=== PATIENT | female | born 1995 | race Two or more races ===

== ENCOUNTER 2016-09-22 20:03 | Emergency (ER) | payer BC ==
[~2016-09-22] VITALS: Ht 157.5 cm; Wt 63.5 kg
--- NOTE | 2016-09-22 20:52 | PHYS DOC ---
General Chief Complaint: TOE PROBLEM Stated Complaint: TOE INJURY Time Seen by MD: 20:05 Source: patient Exam Limitations: no limitations Problems: History of Present Illness Initial Comments Patient is a 20-year-old female who comes in the ED complaining of right hallux nail avulsion. Patient states that she had artery lost her right hallux nail due to trauma recently. She use a fake toenail with glue to attach a fake nail to her exposed nail bed prior to going to the [place]. 2 days ago while at the [place] she accidentally kicked a rock which dislodged the fake nail. She now has an exposed tender red right hallux nail bed. No purulence there's been serosanguineous discharge. She denies pain and swelling is minimal she denies any other injury and her tetanus status is not up-to-date. No fever chills sweats or myalgias no pre-arrival treatment she denies any immunosuppression. She has history of simple skin MRSA infection in the past. Onset: other Severity: moderate Pain/Injury Location: right 1st toe Method of Injury: direct blow Modifying Factors: worse with jarring, worse with movement, improves with rest Allergies: Coded Allergies: No Known Drug Allergies (Unverified , 09/22/16) Past Medical History Medical History: no pertinent history Surgical History: no surgical history Social History Smoker: non-smoker Alcohol: none Drugs: none Review of Systems Constitutional: denies chills, denies diaphoresis, denies fever, denies malaise Respiratory: denies cough, denies shortness of breath Cardiovascular: denies chest pain, denies palpitations Gastrointestinal: denies diarrhea, denies nausea, denies vomiting Genitourinary: denies dysuria, denies frequency, denies hematuria Musculoskeletal: see HPI Skin: see HPI Physical Exam General Appearance: WD/WN, no apparent distress HEENT: normal ENT inspection Neck: non-tender, supple Cardiovascular/Respiratory: normal peripheral pulses, no respiratory distress Back: no CVA tenderness, no vertebral tenderness Ankles: bilateral ankle non-tender, bilateral ankle normal inspection, bilateral ankle normal range of motion, bilateral ankle no evidence of injury Feet: left foot non-tender, left foot normal inspection, left foot normal range of motion, left foot no evidence of injury, right foot other (the nail is missing her right hallux stairs pink healing tissue no active bleeding or lacerations. Very minimal soft tissue swelling no bony tenderness the extremity appears to be neurovascularly intact ligaments are intact.) Neurologic/Tendon: normal sensation, normal motor functions, normal tendon functions, responds to pain, no evidence tendon injury Psychiatric: alert, oriented x 3 Skin: warm/dry (right hallux as above) Departure Time of Disposition: 20:50 Disposition: 01 HOME, SELF-CARE Diagnosis: R Hallux nail avulsion/cellulitis Condition: GOOD Patient Instructions: Cellulitis, [id number], Nail Avulsion Injury Additional Instructions: Elevate right foot as tolerated. Warm Epsom salt soaks twice daily. [id number] Tylenol and ibuprofen as needed. Keep wound covered with sterile dressing until healed. Wash wound twice daily with soap and warm water, blot dry. Apply Bactroban ointment and change dressing with each wash. Allow the wound to air dry one hour daily. Prescription: Bactrim DS, Bactroban ointment Follow-up with your doctor in 5-7 days for a recheck. Return to the ED with new or changing symptoms SHARAD CARPIO DO Sep 22, 2016 20:52
[2016-09-22 21:00] VITALS: BP 116/58
[2016-09-22] MEDS ORDERED: DIPHTH,PERTUSS(ACELL),TET TOX 0.5 ML DISP.SYRIN. VAX IM ONE (21:15)
[2016-09-22] MEDS ORDERED: cefTRIAXone IM 1 GM VIAL IM ONE (21:15)
== END 2016-09-22 21:15 | disposition home or self-care (01) ==
LOC: ER 20:03
DX: S91.201A Unspecified open wound of right great toe with damage to nail, initial encounter (principal); W22.8XXA Striking against or struck by other objects, initial encounter; Y93.89 Activity, other specified; Y99.8 Other external cause status; Y92.89 Other specified places as the place of occurrence of the external cause
CPT/HCPCS: 99283

== ENCOUNTER 2016-11-15 11:51 | Emergency (ER) | payer BC ==
[2016-11-15 11:55] VITALS: BP 117/64
[2016-11-15] MEDS ORDERED: ONDANSETRON ODT 4 MG TAB.RAPDIS ONE (12:12)
[2016-11-15] MEDS ORDERED: MORPHINE SULFATE 10 MG/ML SYRINGE. ONE (12:12)
[2016-11-15] MEDS ORDERED: ONDANSETRON ODT 4 MG TAB.RAPDIS PO ONE (12:40)
[2016-11-15] MEDS ORDERED: MORPHINE SULFATE 10 MG/ML SYRINGE. IV ONE (12:40)
[2016-11-15] MEDS ORDERED: MORPHINE SULFATE 10 MG/ML SYRINGE. IM ONE (12:45)
--- NOTE | 2016-11-15 14:41 | ED.ADGEN ---
Past History Past Medical History: MRSA Past Surgical History: Tonsillectomy Alcohol Use: Occasionally Drug Use: None Adult General Chief Complaint Chief Complaint Abscess to buttocks HPI HPI Patient is a 21-year-old female with history of MRSA who presents with abscesses to left and right buttocks one week. Patient's been seen twice and put on different antibiotics to treat abscess which continue to enlarge and become more painful. On exam, there is minimal purulent drainage from right buttocks abscess with firm indurated abscess approximately 2 x 3 cm with pointing. On the left buttocks areas of small 1 by mouth centimeter abscess with minimal induration and erythema and no fluctuance. Patient is not fever chills, nausea vomiting sweats. She denies other symptoms or complaints. Review of Systems Review of Systems ROS as per HPI. All other ROS are negative. Current Medications Current Medications Current Medications Medications (Trade) Dose Ordered Sig/Yosvany Start Time Stop Time Status Last Admin Dose Admin Morphine Sulfate (Morphine 10mg Syringe) 5 mg 1X ONCE 11/15/16 12:45 11/15/16 12:46 DC Ondansetron HCl (Zofran Odt) 4 mg STK-MED ONCE 11/15/16 12:12 11/15/16 12:13 DC Allergies Allergies Allergies Coded Allergies Type Severity Reaction Last Updated Verified No Known Drug Allergies 09/22/16 No Physical Exam Physical Exam Constitutional: Well developed, well nourished, no acute distress, non-toxic appearance. [] HENT: Normocephalic, atraumatic, bilateral external ears normal, oropharynx moist, no oral exudates, nose normal. [] Eyes: PERRLA, EOM. Cardiovascular:Heart rate regular rhythm, no murmur [] Lungs & Thorax: Bilateral breath sounds clear to auscultation [] Skin: There is minimal purulent drainage from right buttocks abscess with firm indurated abscess approximately 2 x 3 cm with pointing. On the left buttocks areas of small 1 by mouth centimeter abscess with minimal induration and erythema and no fluctuance. Neurologic: Alert and oriented X 3, normal motor function, normal sensory function, no focal deficits noted. Psychologic: Affect normal, judgement normal, mood normal. [] Current Patient Data Vital Signs Vital Signs Date Time Temp Pulse Resp B/P (MAP) Pulse Ox O2 Delivery O2 Flow Rate FiO2 8/5/17 11:55 98.3 85 16 99 EKG EKG [] Radiology/Procedures Radiology/Procedures [Proceduce Note: Patient had 2 abscesses located on each buttocks prepped with Betadine. Each abscess was then injected with 1% lidocaine without epinephrine. A stab incision was made to the left buttocks with purulent drainage obtained. The wound was then irrigated and explored for loculations. A bandage was placed over the incision site. A stab incision was made to the right buttocks with minimal purulent material being expressed. Wound was irrigated and on for loculations which were not present. A bandage was then placed over the insertion night. The patient tolerated the procedure well. ] Course & Med Decision Making Course & Med Decision Making Pertinent Labs and Imaging studies reviewed. (See chart for details) [I&D of thorax abscesses with culture obtained. Recommendation continued supportive care, antibiotics with PCP follow-up.] Final Impression Final Impression [1. abscesses of right and left buttocks] Problems: Dragon Disclaimer Dragon Disclaimer This electronic medical record was generated, in whole or in part, using a voice recognition dictation system. KATHERINE RUIZ DO Nov 15, 2016 14:41
== END 2016-11-15 13:18 | disposition home or self-care (01) ==
LOC: ER 11:51
DX: L02.31 Cutaneous abscess of buttock (principal); Z86.14 Personal history of Methicillin resistant Staphylococcus aureus infection
CPT/HCPCS: 10060; 87070; 87186; 99284; Q0162; 99283

== ENCOUNTER 2017-02-04 01:35 | Emergency (ER) | payer BC ==
--- NOTE | 2017-02-04 01:38 | ED.ADGEN ---
Past History Past Medical History: Anxiety, MRSA, Other Additional Past Medical Histor: EATING Disorder Past Surgical History: Tonsillectomy Smoking: Cigarettes Alcohol Use: Occasionally Drug Use: None Adult General Chief Complaint Chief Complaint " I am about 6 weeks .. I am not feeling well all day.. lower pelvic tenderness. I don't know if this is the way your I am supposed to feel in ..." " I am tired all the time".. HPI HPI Patient is a 21 year old female who presents with above hx and complaints of lower pelvic pain. Patient states had a previous ultrasound in outpatient clinic in [place], [place]. The clinic advised her she was approximately 6 weeks . Patient has no history of STDs. Reports 3 lifetime sex partners. This is patient's first . No history of trauma. No history of travel. No history of change in bowel movements or any dysuria.. No specific ill contacts. Patient has not been taking vitamins. Patient does have a history eating disorder which she eats and then forces herself to vomit.. Pt. does smoke tobacco and Marijuana. Pt. has drank alcohol recently.. Pt. follows with Dr. Wallis. Review of Systems Review of Systems Constitutional: Denies fever or chills [] Eyes: Denies change in visual acuity, redness, or eye pain [] HENT: Denies nasal congestion or sore throat [] Respiratory: Denies cough or shortness of breath [] Cardiovascular: No additional information not addressed in HPI [] GI: Complaints of pelvic abdominal pain, nausea,. Denies vomiting, bloody stools or diarrhea [] : Denies dysuria or hematuria [] Musculoskeletal: Denies back pain or joint pain [] Integument: Denies rash or skin lesions [] Neurologic: Denies headache, focal weakness or sensory changes [] Endocrine: Denies polyuria or polydipsia [] Family History Family History Noncontributory Current Medications Current Medications Current Medications Medications (Trade) Dose Ordered Sig/Yosvany Start Time Stop Time Status Last Admin Dose Admin Famotidine (Pepcid) 20 mg 1X ONCE 02/04/17 02:00 02/04/17 03:39 DC 02/04/17 03:09 20 MG Lactated Ringer's 1,000 ml @ 1,000 mls/hr Q1H 02/04/17 02:00 02/04/17 03:38 DC 02/04/17 03:09 1,000 MLS/HR Allergies Allergies Allergies Coded Allergies Type Severity Reaction Last Updated Verified No Known Drug Allergies 09/22/16 No Physical Exam Physical Exam Constitutional: Well developed, well nourished, [id number] distress, non- toxic appearance. [] HENT: Normocephalic, atraumatic, bilateral external ears normal, oropharynx moist, no oral exudates, nose normal. [] Eyes: PERRLA, EOMI, conjunctiva normal, no discharge. [] Neck: Normal range of motion, no tenderness, supple, no stridor. [] Cardiovascular:Heart rate regular rhythm, no murmur [] Lungs & Thorax: Bilateral breath sounds clear to auscultation [] Abdomen: Bowel sounds present all 4 quadrants, soft, lower pelvic tenderness, no masses, no pulsatile masses. Pelvic exam shows no active bleeding by OS. Mild cervical motion tenderness. Rectal hard stool. Skin: Warm, dry, no erythema, no rash. [] Back: No tenderness, no CVA tenderness. [] Extremities: No tenderness, no cyanosis, no clubbing, ROM intact, no edema. [] Neurologic: Alert and oriented X 3, normal motor function, normal sensory function, no focal deficits noted. [] Psychologic: Affect anxious, judgement normal, mood normal. [] Current Patient Data Vital Signs Vital Signs Date Time Temp Pulse Resp B/P (MAP) Pulse Ox O2 Delivery O2 Flow Rate FiO2 02/04/17 04:10 98.0 94 20 122/81 (95) 99 Room Air Lab Results Laboratory Tests Test 02/04/17 02:10 02/04/17 02:30 White Blood Count 12.3 x10^3/uL (4.0-11.0) H Red Blood Count 4.95 x10^6/uL (3.50-5.40) Hemoglobin 14.7 g/dL (12.0-15.5) Hematocrit 43.4 % (36.0-47.0) Mean Corpuscular Volume 88 fL (79-100) Mean Corpuscular Hemoglobin 30 pg (25-35) Mean Corpuscular Hemoglobin Concent 34 g/dL (31-37) Red Cell Distribution Width 14.8 % (11.5-14.5) H Platelet Count 257 x10^3/uL (140-400) Neutrophils (%) (Auto) 70 % (31-73) Lymphocytes (%) (Auto) 22 % (24-48) L Monocytes (%) (Auto) 7 % (0-9) Eosinophils (%) (Auto) 1 % (0-3) Basophils (%) (Auto) 1 % (0-3) Neutrophils # (Auto) 8.7 x10^3uL (1.8-7.7) H Lymphocytes # (Auto) 2.7 x10^3/uL (1.0-4.8) Monocytes # (Auto) 0.9 x10^3/uL (0.0-1.1) Eosinophils # (Auto) 0.1 x10^3/uL (0.0-0.7) Basophils # (Auto) 0.1 x10^3/uL (0.0-0.2) Prothrombin Time 9.8 SEC (9.4-11.4) Prothrombin Time INR 1.0 (0.9-1.1) PTT 27 SEC (23-33) Maternal Serum HCG Beta Subunit 41996 mIU/mL (0-6) H Sodium Level 137 mmol/L (136-145) Potassium Level 3.9 mmol/L (3.5-5.1) Chloride Level 101 mmol/L (98-107) Carbon Dioxide Level 28 mmol/L (21-32) Anion Gap 8 (6-14) Blood Urea Nitrogen 10 mg/dL (7-20) Creatinine 0.5 mg/dL (0.6-1.0) L Estimated GFR (Cockcroft-Gault) 155.7 BUN/Creatinine Ratio 20 (6-20) Glucose Level 83 mg/dL (70-99) Calcium Level 8.7 mg/dL (8.5-10.1) Total Bilirubin 0.2 mg/dL (0.2-1.0) Direct Bilirubin 0.1 mg/dL (0.0-0.2) Aspartate Amino Transferase (AST) 15 U/L (15-37) Alanine Aminotransferase (ALT) 22 U/L (14-59) Alkaline Phosphatase 40 U/L (46-116) L Total Protein 6.6 g/dL (6.4-8.2) Albumin 3.6 g/dL (3.4-5.0) Albumin/Globulin Ratio 1.2 (1.0-1.7) Amylase Level 55 U/L (25-115) Lipase 276 U/L (73-393) Urine Collection Type Unknown Urine Color Yellow Urine Clarity Clear Urine pH 7.0 Urine Specific [place] 1.015 Urine Protein Neg (NEG-TRACE) Urine Glucose (UA) Neg mg/dL (NEG) Urine Ketones (Stick) Neg mg/dL (NEG) Urine Blood Trace (NEG) Urine Nitrite Neg (NEG) Urine Bilirubin Neg (NEG) Urine Urobilinogen Dipstick 0.2 mg/dL (0.2 mg/dL) Urine Leukocyte Esterase Neg (NEG) Urine RBC Rare /HPF (0-2) Urine WBC Occ /HPF (0-4) Urine Squamous Epithelial Cells Occ /LPF Urine Bacteria 0 /HPF (0-FEW) Urine Opiates Screen Neg (NEG) Urine Methadone Screen Neg (NEG) Urine Barbiturates Neg (NEG) Urine Phencyclidine Screen Neg (NEG) Urine Amphetamine/Methamphetamine Neg (NEG) Urine Benzodiazepines Screen Neg (NEG) Urine Cocaine Screen Neg (NEG) Urine Cannabinoids Screen Pos (NEG) Urine Ethyl Alcohol Neg (NEG) Microbiology 02/04/17 Wet Prep - Final, Complete Laboratory Tests Test 02/04/17 02:10 02/04/17 02:30 White Blood Count 12.3 x10^3/uL (4.0-11.0) H Red Blood Count 4.95 x10^6/uL (3.50-5.40) Hemoglobin 14.7 g/dL (12.0-15.5) Hematocrit 43.4 % (36.0-47.0) Mean Corpuscular Volume 88 fL (79-100) Mean Corpuscular Hemoglobin 30 pg (25-35) Mean Corpuscular Hemoglobin Concent 34 g/dL (31-37) Red Cell Distribution Width 14.8 % (11.5-14.5) H Platelet Count 257 x10^3/uL (140-400) Neutrophils (%) (Auto) 70 % (31-73) Lymphocytes (%) (Auto) 22 % (24-48) L Monocytes (%) (Auto) 7 % (0-9) Eosinophils (%) (Auto) 1 % (0-3) Basophils (%) (Auto) 1 % (0-3) Neutrophils # (Auto) 8.7 x10^3uL (1.8-7.7) H Lymphocytes # (Auto) 2.7 x10^3/uL (1.0-4.8) Monocytes # (Auto) 0.9 x10^3/uL (0.0-1.1) Eosinophils # (Auto) 0.1 x10^3/uL (0.0-0.7) Basophils # (Auto) 0.1 x10^3/uL (0.0-0.2) Prothrombin Time 9.8 SEC (9.4-11.4) Prothrombin Time INR 1.0 (0.9-1.1) PTT 27 SEC (23-33) Maternal Serum HCG Beta Subunit 90384 mIU/mL (0-6) H Sodium Level 137 mmol/L (136-145) Potassium Level 3.9 mmol/L (3.5-5.1) Chloride Level 101 mmol/L (98-107) Carbon Dioxide Level 28 mmol/L (21-32) Anion Gap 8 (6-14) Blood Urea Nitrogen 10 mg/dL (7-20) Creatinine 0.5 mg/dL (0.6-1.0) L Estimated GFR (Cockcroft-Gault) 155.7 BUN/Creatinine Ratio 20 (6-20) Glucose Level 83 mg/dL (70-99) Calcium Level 8.7 mg/dL (8.5-10.1) Total Bilirubin 0.2 mg/dL (0.2-1.0) Direct Bilirubin 0.1 mg/dL (0.0-0.2) Aspartate Amino Transferase (AST) 15 U/L (15-37) Alanine Aminotransferase (ALT) 22 U/L (14-59) Alkaline Phosphatase 40 U/L (46-116) L Total Protein 6.6 g/dL (6.4-8.2) Albumin 3.6 g/dL (3.4-5.0) Albumin/Globulin Ratio 1.2 (1.0-1.7) Amylase Level 55 U/L (25-115) Lipase 276 U/L (73-393) Urine Collection Type Unknown Urine Color Yellow Urine Clarity Clear Urine pH 7.0 Urine Specific [place] 1.015 Urine Protein Neg (NEG-TRACE) Urine Glucose (UA) Neg mg/dL (NEG) Urine Ketones (Stick) Neg mg/dL (NEG) Urine Blood Trace (NEG) Urine Nitrite Neg (NEG) Urine Bilirubin Neg (NEG) Urine Urobilinogen Dipstick 0.2 mg/dL (0.2 mg/dL) Urine Leukocyte Esterase Neg (NEG) Urine RBC Rare /HPF (0-2) Urine WBC Occ /HPF (0-4) Urine Squamous Epithelial Cells Occ /LPF Urine Bacteria 0 /HPF (0-FEW) Microbiology 02/04/17 Wet Prep - Final, Complete EKG EKG [] Radiology/Procedures Radiology/Procedures US IUP 6w/6d, Enlarged Rt ovary? corpus luteum. ? Subchorionic bleed noted. [] Course & Med Decision Making Course & Med Decision Making Pertinent Labs and Imaging studies reviewed. (See chart for details) Pt. to take vitamins. If unable tolerated s at this time, take two chewable Flintstones. Tylenol only for discomfort. Follow up all cultures and labs taken here with primary and OB. Stop tob., MJ and alcohol use. Return if any concerns. Must followup with primary and OB. [] Final Impression Final Impression 1. Abdomen pain 2. US= IUP, HR 128, 6wk 6 days with Subchorionic bleed 3. Enlarged Rt Ovary- ? Corpus Luteum 2x1.4 x 2 cm 4. Blood type O+ 5, B-HCG= 47,170 6. Hx. MJ, Alcohol and Tobacco use Problems: Dragon Disclaimer Dragon Disclaimer This electronic medical record was generated, in whole or in part, using a voice recognition dictation system. KAIDEN SINGER MD Feb 04, 2017 01:38
[2017-02-04] MEDS ORDERED: FAMOTIDINE 20 MG/2 ML VIAL IVP ONE (02:00)
[2017-02-04] MEDS ORDERED: IV RINGERS SOLUTION,LACTATED 1,000 ML IV SCH (02:00)
[2017-02-04 02:52] LABS: BASO # 0.1 x10^3/uL (0.0-0.2); BASO % 1 % (0-3); EOS # 0.1 x10^3/uL (0.0-0.7); EOS % 1 % (0-3); HEMATOCRIT 43.4 % (36.0-47.0); HEMOGLOBIN 14.7 g/dL (12.0-15.5); LYMPH # 2.7 x10^3/uL (1.0-4.8); LYMPH % 22 % (24-48); MEAN CORPUSCULAR HEMOGLOBIN 30 pg (25-35); MEAN CORPUSCULAR HGB CONC 34 g/dL (31-37); MEAN CORPUSCULAR VOLUME 88 fL (79-100); MONO # 0.9 x10^3/uL (0.0-1.1); MONO % 7 % (0-9); NEUT # 8.7 x10^3uL (1.8-7.7); NEUT % 70 % (31-73); PLATELET COUNT 257 x10^3/uL (140-400); RED BLOOD COUNT 4.95 x10^6/uL (3.50-5.40); RED CELL DISTRIBUTION WIDTH 14.8 % (11.5-14.5); WHITE BLOOD COUNT 12.3 x10^3/uL (4.0-11.0)
[2017-02-04 02:57] LABS: ALBUMIN 3.6 g/dL (3.4-5.0); ALBUMIN/GLOBULIN RATIO 1.2 (1.0-1.7); CALCIUM 8.7 mg/dL (8.5-10.1); CREATININE 0.5 mg/dL (0.6-1.0); DIRECT BILIRUBIN 0.1 mg/dL (0.0-0.2); GFR 155.7; POTASSIUM 3.9 mmol/L (3.5-5.1); TOTAL BILIRUBIN 0.2 mg/dL (0.2-1.0); TOTAL PROTEIN 6.6 g/dL (6.4-8.2)
[2017-02-04 03:40] LABS: BACTERIA,URINE 0 /HPF (0-FEW); BILIRUBIN,URINE NEG (NEG); CLARITY,URINE CLEAR; COLOR,URINE YELLOW; GLUCOSE,URINE NEG (NEG); NITRITE,URINE NEG (NEG); RBC,URINE RARE /HPF (0-2); SQUAMOUS EPITHELIAL CELL,UR OCC /LPF; UROBILINOGEN,URINE 0.2 mg/dL (0.2 mg/dL); WBC,URINE OCC /HPF (0-4)
--- NOTE | 2017-02-04 03:40 | RAD ---
First trimester ultrasound dated 06/07/2016. No comparison available. Clinical indication: Cramping. FINDINGS: Gestational sac and pole within the endometrial canal. The [place]-rump length measures 0.86 cm, correlating with a 6 week 2 day gestation. Estimated sonographic date of delivery of 09/24/2017. Gestational sac is normal in morphology. Small subchorionic collection. Yolk sac is seen. heart rate 128 bpm. Right ovary measures 4.6 x 2.0 x 1.5 cm. Left ovary measures 2.5 x 1.7 x 1.5 cm. Probable corpus luteum cyst at the right ovary measuring up to 2 cm in size. Normal color Doppler flow. No free fluid. IMPRESSION: 1. Single viable intrauterine gestation with estimated sonographic gestational age of 6 weeks 2 days. 2. Small subchorionic hematoma, age indeterminate. 3. Probable corpus luteum cyst right ovary. Electronically signed by: Wilman Rowell MD (02/04/2017 3:36 AM) [id number]
[2017-02-04 03:46] LABS: AMPHETAMINE/METHAMPHETAMINE NEG (NEG); BARBITURATES NEG (NEG); BENZODIAZEPINES NEG (NEG); CANNABINOIDS POS (NEG); COCAINE NEG (NEG); METHADONE NEG (NEG); OPIATES NEG (NEG); PHENCYCLIDINE NEG (NEG)
[2017-02-04 04:10] VITALS: BP 122/81
[2017-02-05 14:13] LABS: CHLAMYDIA PROBE Negative (Negative)
== END 2017-02-04 04:10 | disposition home or self-care (01) ==
LOC: ER 01:35
DX: O26.891 Other specified pregnancy related conditions, first trimester (principal); R10.2 Pelvic and perineal pain; O99.341 Other mental disorders complicating pregnancy, first trimester; O99.331 Smoking (tobacco) complicating pregnancy, first trimester; F41.9 Anxiety disorder, unspecified; Z3A.01 Less than 8 weeks gestation of pregnancy
CPT/HCPCS: 36415; 76801; 80053; 80307; 81001; 82150; 82248; 83690; 84443; 84702; 85025; 85610; 85730; 86592; 86593; 86701; 86702; 86703; 86900; 86901; 87491; 87535; 87591; 96361; 96374; 99285; J7120; Q0111; S0028; G0479

== ENCOUNTER 2017-12-04 09:09 | Emergency (ER) | payer BC ==
[~2017-12-04] VITALS: Ht 157.5 cm; Wt 59.0 kg
[2017-12-04 09:18] VITALS: BP 134/86
[2017-12-04] MEDS ORDERED: IV NORMAL SALINE 1,000ML 1,000 ML IV ONE (09:30)
[2017-12-04 09:41] LABS: AMORPHOUS SEDIMENT,UR PRESENT /HPF; BACTERIA,URINE FEW /HPF (0-FEW); BILIRUBIN,URINE NEG (NEG); CLARITY,URINE CLOUDY; COLOR,URINE YELLOW; GLUCOSE,URINE NEG (NEG); NITRITE,URINE NEG (NEG); RBC,URINE 0 /HPF (0-2); SQUAMOUS EPITHELIAL CELL,UR FEW /LPF; UROBILINOGEN,URINE 0.2 mg/dL (0.2 mg/dL); WBC,URINE RARE /HPF (0-4)
[2017-12-04 09:50] LABS: BASO # 0.1 x10^3/uL (0.0-0.2); BASO % 1 % (0-3); EOS # 0.1 x10^3/uL (0.0-0.7); EOS % 1 % (0-3); HEMATOCRIT 47.2 % (36.0-47.0); HEMOGLOBIN 16.1 g/dL (12.0-15.5); LYMPH # 1.8 x10^3/uL (1.0-4.8); LYMPH % 24 % (24-48); MEAN CORPUSCULAR HEMOGLOBIN 29 pg (25-35); MEAN CORPUSCULAR HGB CONC 34 g/dL (31-37); MEAN CORPUSCULAR VOLUME 85 fL (79-100); MONO # 0.4 x10^3/uL (0.0-1.1); MONO % 6 % (0-9); NEUT # 5.1 x10^3uL (1.8-7.7); NEUT % 68 % (31-73); PLATELET COUNT 237 x10^3/uL (140-400); RED BLOOD COUNT 5.54 x10^6/uL (3.50-5.40); RED CELL DISTRIBUTION WIDTH 13.8 % (11.5-14.5); WHITE BLOOD COUNT 7.5 x10^3/uL (4.0-11.0)
[2017-12-04] MEDS ORDERED: DOXYLAMINE SUCCINATE 25 MG TABLET PO ONE (10:00)
[2017-12-04] MEDS ORDERED: PYRIDOXINE 50 MG TABLET. PO ONE (10:00)
--- NOTE | 2017-12-04 10:02 | PHYS DOC ---
Past History Past Medical History: No Pertinent History Past Surgical History: Tonsillectomy Alcohol Use: None Drug Use: None Adult General Chief Complaint Chief Complaint: ABDOMINAL PAIN IN HPI HPI 22-year-old female presents with diffuse abdominal pain for the last couple of days. Pain is a dull cramping sensation that comes and goes. The patient states that she has not had a menses in the last 3 months, but she is always irregular. She took a home test and it was positive. She has had nausea last 2-3 days without vomiting. She has had increased urine frequency, but denies dysuria. She's had no fever or chills at home. No vaginal discharge or bleeding. Review of Systems Review of Systems Constitutional: Denies fever or chills [] Eyes: Denies change in visual acuity, redness, or eye pain [] HENT: Denies nasal congestion or sore throat [] Respiratory: Denies cough or shortness of breath [] Cardiovascular: No additional information not addressed in HPI [] GI: abdominal pain, nausea[] : Denies dysuria or hematuria, + home test [] Musculoskeletal: Denies back pain or joint pain [] Integument: Denies rash or skin lesions [] Neurologic: Denies headache, focal weakness or sensory changes [] Endocrine: Denies polyuria or polydipsia [] All other systems were reviewed and found to be within normal limits, except as documented in this note. Current Medications Current Medications Current Medications Medications (Trade) Dose Ordered Sig/Yosvany Start Time Stop Time Status Last Admin Dose Admin Doxylamine Succinate (Unisom) 25 mg 1X ONCE 12/04/17 10:00 12/04/17 10:01 Pyridoxine HCl (Vitamin B-6) 50 mg 1X ONCE 12/04/17 10:00 12/04/17 10:01 Sodium Chloride 1,000 ml @ 1,000 mls/hr 1X ONCE 12/04/17 09:30 12/04/17 10:29 12/04/17 09:35 1,000 MLS/HR Allergies Allergies Allergies Coded Allergies Type Severity Reaction Last Updated Verified No Known Drug Allergies 12/04/17 No Physical Exam Physical Exam Constitutional: Well developed, well nourished, no acute distress, non-toxic appearance. [] HENT: Normocephalic, atraumatic, bilateral external ears normal, oropharynx moist, no oral exudates, nose normal. [] Eyes: PERRLA, EOMI, conjunctiva normal, no discharge. [] Neck: Normal range of motion, no tenderness, supple, no stridor. [] Cardiovascular:Heart rate regular rhythm, no murmur [] Lungs & Thorax: Bilateral breath sounds clear to auscultation [] Abdomen: Bowel sounds normal, soft, mild diffuse tenderness, greatest in the suprapubic area. [] Skin: Warm, dry, no erythema, no rash. [] Back: No tenderness, no CVA tenderness. [] Extremities: No tenderness, no cyanosis, no clubbing, ROM intact, no edema. [] Neurologic: Alert and oriented X 3, normal motor function, normal sensory function, no focal deficits noted. [] Psychologic: Affect normal, judgement normal, mood normal. [] Current Patient Data Vital Signs Vital Signs Date Time Temp Pulse Resp B/P (MAP) Pulse Ox O2 Delivery O2 Flow Rate FiO2 12/04/17 09:18 98.6 84 15 98 Room Air Lab Results Laboratory Tests Test 12/04/17 08:41 12/04/17 09:18 12/04/17 09:33 POC Urine HCG, Qualitative hcg positive (Negative) Urine Collection Type Unknown Urine Color Yellow Urine Clarity Cloudy Urine pH 7.5 Urine Specific [place] 1.020 Urine Protein Neg (NEG-TRACE) Urine Glucose (UA) Neg mg/dL (NEG) Urine Ketones (Stick) Neg mg/dL (NEG) Urine Blood Neg (NEG) Urine Nitrite Neg (NEG) Urine Bilirubin Neg (NEG) Urine Urobilinogen Dipstick 0.2 mg/dL (0.2 mg/dL) Urine Leukocyte Esterase Trace (NEG) Urine RBC 0 /HPF (0-2) Urine WBC Rare /HPF (0-4) Urine Squamous Epithelial Cells Few /LPF Urine Amorphous Sediment Present /HPF Urine Bacteria Few /HPF (0-FEW) White Blood Count 7.5 x10^3/uL (4.0-11.0) Red Blood Count 5.54 x10^6/uL (3.50-5.40) H Hemoglobin 16.1 g/dL (12.0-15.5) H Hematocrit 47.2 % (36.0-47.0) H Mean Corpuscular Volume 85 fL (79-100) Mean Corpuscular Hemoglobin 29 pg (25-35) Mean Corpuscular Hemoglobin Concent 34 g/dL (31-37) Red Cell Distribution Width 13.8 % (11.5-14.5) Platelet Count 237 x10^3/uL (140-400) Neutrophils (%) (Auto) 68 % (31-73) Lymphocytes (%) (Auto) 24 % (24-48) Monocytes (%) (Auto) 6 % (0-9) Eosinophils (%) (Auto) 1 % (0-3) Basophils (%) (Auto) 1 % (0-3) Neutrophils # (Auto) 5.1 x10^3uL (1.8-7.7) Lymphocytes # (Auto) 1.8 x10^3/uL (1.0-4.8) Monocytes # (Auto) 0.4 x10^3/uL (0.0-1.1) Eosinophils # (Auto) 0.1 x10^3/uL (0.0-0.7) Basophils # (Auto) 0.1 x10^3/uL (0.0-0.2) EKG EKG [] Radiology/Procedures Radiology/Procedures [] Impressions: Obstetrical ultrasound, 12/04/2017: HISTORY: Positive test, cramping Transabdominal and transvaginal scans were obtained. The uterus is within normal limits in size. There is thickening of the central uterine echo complex which measures 1.2 cm in AP dimension. No intrauterine gestational sac is seen. The ovaries are within normal limits in size. There are small follicular cysts in both ovaries. There is a 1.6 cm heterogeneous nodule in the right ovary. Its rim is slightly hyperechoic while internally it is heterogeneously isoechoic. This may represent a hemorrhagic cyst. Blood flow is present in both ovaries. There is a moderate amount of simple free fluid in the pelvis. The adnexal regions are otherwise unremarkable. IMPRESSION: 1. Thickening of the central uterine echo complex without evidence of an intrauterine gestational sac. This could be due to a very early intrauterine , although an occult ectopic cannot be excluded. Correlation with serial hCG titers and sonographic follow-up is suggested. 2. Small complex nodule in the right ovary which may be a hemorrhagic cyst. 3. Moderate amount of free fluid in the pelvis. Electronically signed by: Ramu Owens MD (12/04/2017 11:13 AM) [facility] DICTATED AND SIGNED BY: RAMU OWENS MD DATE: 12/04/17 1108 CC: KATHERINE RACHEL DO; PCP,NO ~ Course & Med Decision Making Course & Med Decision Making Pertinent Labs and Imaging studies reviewed. (See chart for details) The patient's labs are unremarkable. She is by urine hCG. A quantitative serum confirms this with a value of 55. Her ultrasound does not show a different minute intrauterine though there is thickening of the central uterine echo complex. See official report for more details. The ultrasound was unable to exclude ectopic . Serial hCGs and follow-up sonogram is recommended. Prior to going into the room to give the patient her results, she disappeared from the ER. She left AMA. A review of the security footage shows that she likely left with her IV in place. We called the patient several times and finally got a hold of her. She was directed to come back to the emergency room to verify her IV was removed and to get her results. We did get a hold of her and she has stated that she is coming back to emergency room. She was told she did not return and we would send the police after her for her welfare. The patient returned to be registration were more reconfirmed she did not have an IV in place. I was able to give her her ultrasound results and stressed the importance of follow-up. She stated she would make phone calls today to follow-up with an OB. [] Dragon Disclaimer Dragon Disclaimer This electronic medical record was generated, in whole or in part, using a voice recognition dictation system. KATHERINE RACHEL DO Dec 04, 2017 10:01
[2017-12-04 10:16] LABS: ALBUMIN 4.4 g/dL (3.4-5.0); ALBUMIN/GLOBULIN RATIO 1.3 (1.0-1.7); CALCIUM 8.9 mg/dL (8.5-10.1); CREATININE 0.7 mg/dL (0.6-1.0); GFR 104.6; POTASSIUM 4.4 mmol/L (3.5-5.1); TOTAL BILIRUBIN 0.3 mg/dL (0.2-1.0); TOTAL PROTEIN 7.7 g/dL (6.4-8.2)
[2017-12-04] MEDS ORDERED: PROCHLORPERAZINE 10 MG/2 ML VIAL. IV ONE (10:45)
--- NOTE | 2017-12-04 11:16 | RAD ---
Obstetrical ultrasound, 12/04/2017: HISTORY: Positive test, cramping Transabdominal and transvaginal scans were obtained. The uterus is within normal limits in size. There is thickening of the central uterine echo complex which measures 1.2 cm in AP dimension. No intrauterine gestational sac is seen. The ovaries are within normal limits in size. There are small follicular cysts in both ovaries. There is a 1.6 cm heterogeneous nodule in the right ovary. Its rim is slightly hyperechoic while internally it is heterogeneously isoechoic. This may represent a hemorrhagic cyst. Blood flow is present in both ovaries. There is a moderate amount of simple free fluid in the pelvis. The adnexal regions are otherwise unremarkable. IMPRESSION: 1. Thickening of the central uterine echo complex without evidence of an intrauterine gestational sac. This could be due to a very early intrauterine , although an occult ectopic cannot be excluded. Correlation with serial hCG titers and sonographic follow-up is suggested. 2. Small complex nodule in the right ovary which may be a hemorrhagic cyst. 3. Moderate amount of free fluid in the pelvis. Electronically signed by: Ramu Owens MD (12/04/2017 11:13 AM) [facility]
== END 2017-12-04 12:06 | disposition left against medical advice (07) ==
LOC: ER 09:09 → MERGE 09:09 → ER 12:06
DX: O34.81 Maternal care for other abnormalities of pelvic organs, first trimester (principal); N83.202 Unspecified ovarian cyst, left side; N83.201 Unspecified ovarian cyst, right side; Z3A.00 Weeks of gestation of pregnancy not specified
CPT/HCPCS: 36415; 76801; 76817; 80053; 81001; 81025; 84702; 85025; 87086; 96374; 99285; J0780; J7030

== ENCOUNTER 2018-11-30 16:23 | Emergency (ER) | payer OTHER ==
[~2018-11-30] VITALS: Ht 157.5 cm; Wt 59.0 kg
[2018-11-30] MEDS ORDERED: PRED20TA PO (17:53)
[2018-11-30] MEDS ORDERED: PERM60CR12 TP (17:53)
--- NOTE | 2018-11-30 17:53 | PHYS DOC ---
Past History Past Medical History: No Pertinent History Additional Past Medical Histor: EATING Disorder Past Surgical History: No Surgical History Smoking: Cigarettes Alcohol Use: None Drug Use: None Adult General Chief Complaint Chief Complaint: ITCHING HPI HPI Patient is a pleasant 23-year-old female, who presents to the emergency department for evaluation. She states that she developed an itchy rash, in the popliteal area of her knees, and on her forearms, in the antecubital fossa is, with some scattered lesions on her buttocks as well. She has not had any definite poison starr exposure, but states her does move the yard regularly. He has not had symptoms, but has told her that he does not typically react to poison starr. She has not had any palmar or plantar lesions. She has a 4-month-old child at home and states she was tested extensively for STDs during and was found to be negative. She has no other complaints at this time. No shortness of breath. Symptoms have been present for about 2-3 weeks, but seemed to have worsened over the past 2-3 days. She had tried Benadryl and calamine cream without improvement in her symptoms. Review of Systems Review of Systems Constitutional: Denies fever or chills [] Eyes: Denies change in visual acuity, redness, or eye pain [] HENT: Denies nasal congestion or sore throat [] Respiratory: Denies cough or shortness of breath [] Musculoskeletal: Denies back pain or joint pain [] Integument: Denies rash or skin lesions, other than as noted in the history of present illness. [] Neurologic: Denies headache, focal weakness or sensory changes [] Allergies Allergies Allergies Coded Allergies Type Severity Reaction Last Updated Verified No Known Drug Allergies 09/22/16 No Physical Exam Physical Exam PHYSICAL EXAM: CONSTITUTIONAL: Well developed, well nourished HEAD: normocephalic, atraumatic EENT: PERRL, EOMI. Conjunctivae normal color, sclerae non-icteric; moist mucous membranes. NECK: Supple, non-tender; no meningismus. LUNGS: Lungs CTA, breathing even and unlabored. Normal air movement. HEART: Regular rate and rhythm, no murmur CHEST: No deformity; non-tender ABDOMEN: The abdomen is soft, and non-tender, no masses or bruits. EXTREM: Normal ROM; no deformity, no calf tenderness. Normal pulses palpable in all extremities. There is no pedal edema. SKIN: There is a papulosquamous rash, in the antecubital fossa bilaterally, left greater than right, as well as the popliteal fossa bilaterally, as well as scattered on the forearms, and trunk. There are no purpuric or petechial lesion. There are no interdigital lesions, no plantar or palmar lesions. The hands are relatively spared. No other rash; no diaphoresis NEURO: Alert; normal speech and cognition; CN's grossly intact; strength grossly intact without focal deficit. BACK: No CVA TTP. Current Patient Data Vital Signs Vital Signs Date Time Temp Pulse Resp B/P (MAP) Pulse Ox O2 Delivery O2 Flow Rate FiO2 11/30/18 16:37 97.8 78 20 94 Room Air EKG EKG [] Radiology/Procedures Radiology/Procedures [] Course & Med Decision Making Course & Med Decision Making I discussed the uncertain etiology of the patient's symptoms. At this point, differential diagnosis includes scabies, or possible poison starr exposure. I discussed importance of close outpatient follow-up and return precautions. Patient will be given a list of local primary care providers to facilitate follow-up. Dragon Disclaimer Dragon Disclaimer This electronic medical record was generated, in whole or in part, using a voice recognition dictation system. Departure Departure: Impression: Primary Impression: Pruritus Additional Impression: Rash Disposition: 01 HOME, SELF-CARE Condition: STABLE Patient Instructions: Poison Starr, Rash, Scabies Scripts Prednisone (PREDNISONE) 20 Mg Tablet 40 MG PO DAILY for - for 5 Days, #10 TAB Prov: SCARLETT HOLM MD 11/30/18 Permethrin (PERMETHRIN) 60 Gm Cream..g. 1 MOISES TP ONCE for -, #60 GM 0 Refills Prov: SCARLETT HOLM MD 11/30/18 Problem Qualifiers SCARLETT HOLM MD Nov 30, 2018 17:53
[2018-11-30 18:11] VITALS: BP 124/62
== END 2018-11-30 18:10 | disposition home or self-care (01) ==
LOC: ER 16:23
DX: R21 Rash and other nonspecific skin eruption (principal); L29.9 Pruritus, unspecified; L98.8 Other specified disorders of the skin and subcutaneous tissue; F17.210 Nicotine dependence, cigarettes, uncomplicated
CPT/HCPCS: 99283

== ENCOUNTER 2019-05-10 11:14 | Emergency (ER) | payer BC, OTHER ==
[~2019-05-10] VITALS: Ht 157.5 cm; Wt 57.0 kg
[~2019-05-10 11:14] MED LIST: PERM60CR12 TP; PRED20TA PO
[2019-05-10] MEDS ORDERED: hydrOXYzine HCL 25 MG TABLET PO STA (11:34)
[2019-05-10] MEDS ORDERED: IV NORMAL SALINE 1,000ML 1,000 ML IV ONE (11:45)
[2019-05-10 11:56] LABS: BASO # 0.1 x10^3/uL (0.0-0.2); BASO % 1 % (0-3); EOS # 0.1 x10^3/uL (0.0-0.7); EOS % 1 % (0-3); HEMATOCRIT 47.5 % (36.0-47.0); HEMOGLOBIN 15.6 g/dL (12.0-15.5); LYMPH # 2.3 x10^3/uL (1.0-4.8); LYMPH % 41 % (24-48); MEAN CORPUSCULAR HEMOGLOBIN 28 pg (25-35); MEAN CORPUSCULAR HGB CONC 33 g/dL (31-37); MEAN CORPUSCULAR VOLUME 84 fL (79-100); MONO # 0.4 x10^3/uL (0.0-1.1); MONO % 7 % (0-9); NEUT # 2.8 x10^3uL (1.8-7.7); NEUT % 49 % (31-73); PLATELET COUNT 244 x10^3/uL (140-400); RED BLOOD COUNT 5.67 x10^6/uL (3.50-5.40); RED CELL DISTRIBUTION WIDTH 14.8 % (11.5-14.5); WHITE BLOOD COUNT 5.6 x10^3/uL (4.0-11.0)
[2019-05-10 12:01] VITALS: BP 130/68
[2019-05-10 12:02] LABS: BARBITURATES NEG (NEG); BENZODIAZEPINES POS (NEG); CANNABINOIDS POS (NEG); COCAINE NEG (NEG); METHADONE NEG (NEG); OPIATES NEG (NEG); PHENCYCLIDINE NEG (NEG)
[2019-05-10 12:02] LABS: CALCIUM 8.8 mg/dL (8.5-10.1); CREATININE 0.7 mg/dL (0.6-1.0); GFR 103.7; POTASSIUM 3.8 mmol/L (3.5-5.1)
[2019-05-10 12:03] LABS: AMPHETAMINE/METHAMPHETAMINE NEG (NEG)
--- NOTE | 2019-05-10 12:03 | PHYS DOC ---
Past History Past Medical History: Anxiety Additional Past Medical Histor: bulemia Past Surgical History: No Surgical History Smoking: Cigarettes Alcohol Use: Occasionally Drug Use: None Adult General Chief Complaint Chief Complaint: ANXIETY/PANIC ATTACK HPI HPI 23-year-old female presents anxiety and stress. 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 She had a one-on-one yesterday that was particularly difficult. Her patient's situation reminded her of issues she has had in the past. This made for a very emotional day. The patient did not calm down throughout the evening. She was able to sleep last night, when she woke up this morning she was getting easily tearful and still felt overwhelmed emotionally. The patient tried some breathing techniques but is still feeling very anxious. She has not taken any medications. She admits to occasional marijuana use, but denies use in the last couple days. She has not been drinking alcohol. She denies any symptoms of illness, fever or chills. Review of Systems Review of Systems Constitutional: Anxious. Denies fever or chills [] Eyes: Denies change in visual acuity, redness, or eye pain [] HENT: Denies nasal congestion or sore throat [] Respiratory: Denies cough or shortness of breath [] Cardiovascular: No additional information not addressed in HPI [] GI: Denies abdominal pain, nausea, vomiting, bloody stools or diarrhea [] : Denies dysuria or hematuria [] Musculoskeletal: Denies back pain or joint pain [] Integument: Denies rash or skin lesions [] Neurologic: Denies headache, focal weakness or sensory changes [] Endocrine: Denies polyuria or polydipsia [] All other systems were reviewed and found to be within normal limits, except as documented in this note. Current Medications Current Medications Current Medications Medications (Trade) Dose Ordered Sig/Yosvany Start Time Stop Time Status Last Admin Dose Admin Hydroxyzine HCl (Atarax) 25 mg 1X STAT 05/10/19 11:34 05/10/19 11:43 DC 05/10/19 11:49 25 MG Sodium Chloride 1,000 ml @ 1,000 mls/hr 1X ONCE 05/10/19 11:45 05/10/19 12:44 05/10/19 11:50 1,000 MLS/HR Allergies Allergies Allergies Coded Allergies Type Severity Reaction Last Updated Verified No Known Drug Allergies 05/10/19 No Physical Exam Physical Exam Constitutional: Well developed, well nourished, no acute distress, non-toxic appearance. [] HENT: Normocephalic, atraumatic, bilateral external ears normal, oropharynx moist, no oral exudates, nose normal. [] Eyes: PERRLA, EOMI, conjunctiva normal, no discharge. [] Neck: Normal range of motion, no tenderness, supple, no stridor. [] Cardiovascular:Heart rate regular rhythm, no murmur [] Lungs & Thorax: Bilateral breath sounds clear to auscultation [] Abdomen: Bowel sounds normal, soft, no tenderness, no masses, no pulsatile masses. [] Skin: Warm, dry, no erythema, no rash. [] Back: No tenderness, no CVA tenderness. [] Extremities: No tenderness, no cyanosis, no clubbing, ROM intact, no edema. [] Neurologic: Alert and oriented X 3, normal motor function, normal sensory function, no focal deficits noted. [] Psychologic: Affect tearful, judgement normal, mood anxious. [] Current Patient Data Vital Signs Vital Signs Date Time Temp Pulse Resp B/P (MAP) Pulse Ox O2 Delivery O2 Flow Rate FiO2 05/10/19 11:28 97.9 113 20 159/97 (117) 100 Room Air EKG EKG [] Radiology/Procedures Radiology/Procedures [] Course & Med Decision Making Course & Med Decision Making Pertinent Labs and Imaging studies reviewed. (See chart for details) The patient's labs are unremarkable. Her urine drug screen was positive for marijuana and benzos. Neither of these are prescribed to the patient. I give her 25 mg of hydroxyzine for her anxiety. She is feeling better at this time. She would like to go home. She is stable for discharge. [] Dragon Disclaimer Dragon Disclaimer This electronic medical record was generated, in whole or in part, using a voice recognition dictation system. Departure Departure: Impression: Primary Impression: Anxiety Disposition: HOME, SELF-CARE Condition: IMPROVED Referrals: [facility] (PCP) Patient Instructions: Anxiety and Panic Attacks, [id number] KATHERINE RACHEL DO May 10, 2019 12:03
[2019-05-10 12:08] LABS: BACTERIA,URINE 0 /HPF (0-FEW); BILIRUBIN,URINE NEG (NEG); CLARITY,URINE CLEAR; COLOR,URINE YELLOW; GLUCOSE,URINE NEG (NEG); NITRITE,URINE NEG (NEG); RBC,URINE 0 /HPF (0-2); SQUAMOUS EPITHELIAL CELL,UR OCC /LPF; UROBILINOGEN,URINE 0.2 mg/dL (0.2 mg/dL)
[2019-05-10 12:09] LABS: ALBUMIN 4.4 g/dL (3.4-5.0); ALBUMIN/GLOBULIN RATIO 1.3 (1.0-1.7); TOTAL BILIRUBIN 0.4 mg/dL (0.2-1.0); TOTAL PROTEIN 7.9 g/dL (6.4-8.2)
[2019-05-10 12:36] LABS: U PREG PATIENT NEGATIVE (NEG)
== END 2019-05-10 13:00 | disposition home or self-care (01) ==
LOC: ER 11:14
DX: F41.9 Anxiety disorder, unspecified (principal); F17.210 Nicotine dependence, cigarettes, uncomplicated
CPT/HCPCS: 36415; 80053; 80307; 81001; 81025; 85025; 99284-25; J7030